=== PATIENT | female | born 2000 | race Caucasian/White ===

== ENCOUNTER 2023-06-09 03:08 | Emergency (ER) | payer OTHER ==
--- NOTE | 2023-06-09 03:39 | ED Physician Documentation ---
History of Present Illness - Stated complaint Stated Complaint: - Chief complaint Chief Complaint: UTI - History obtained from History obtained from: Patient - Additonal information Additional information: The patient comes to the emergency department chief complaint of dysuria and urinary frequency for about the last 24 hours. She is also had some blood in her urine. She had a UTI before and states this feels the same. She denies any fevers or chills or nausea and vomiting. She denies abdominal pain. No other complaints at this time. PD PAST MEDICAL HISTORY - Past Medical History Past Medical History: No - Past Surgical History Past Surgical History: No - Present Medications Home Medications: Ambulatory Orders Medication Instructions Recorded Confirmed Non Formulary 1 tab PO DAILY 06/09/23 06/09/23 Phenazopyridine HCl [Pyridium] 200 mg PO TID PRN #6 tablet 06/09/23 Sulfamethox/Trimeth 800/160 1 each PO BID #14 tablet 06/09/23 [Bactrim Ds 800/160] - Allergies Allergies/Adverse Reactions: Allergies Allergy/AdvReac Type Severity Reaction Status Date / Time amoxicillin Allergy Hives Verified 06/09/23 03:23 Penicillins Allergy Hives Verified 06/09/23 03:23 - Social History Does the pt smoke?: No Smoking Status: Never smoker Does the pt drink ETOH?: No Does the pt have substance abuse?: No Substance Use and Type: Marijuana PD ED PE NORMAL - Vitals Vital signs reviewed: Yes - General General: Alert and oriented X 3, No acute distress, Well developed/nourished - HEENT HEENT: Atraumatic, EOMI, Moist mucous membranes - Neck Neck: Supple, no meningeal sign - Cardiac Cardiac: RRR, No murmur - Respiratory Respiratory: No respiratory distress, Clear bilaterally - Abdomen Abdomen: Soft, Non tender, Non distended - Derm Derm: Normal color, Warm and dry, No rash - Extremities Extremities: No deformity - Neuro Neuro: Alert and oriented X 3 - Psych Psych: Normal mood, Normal affect Results - Vitals Vitals: Vital Signs - 24 hr 06/09/23 03:18 Temperature 36.8 C Heart Rate 130 H Respiratory 15 Rate Blood Pressure 134/69 H O2 Saturation 98 Oxygen O2 Source Room air - Labs Labs: Laboratory Tests 06/09/23 06/09/23 03:28 03:28 Serum HCG, Qual NEGATIVE Urine Color RED/BLOODY Urine Clarity CLOUDY Urine pH 8.0 H Ur Specific Drums 1.010 Urine Protein >=300 H Urine Glucose (UA) NEGATIVE Urine Ketones 15 H Urine Occult Blood LARGE H Urine Nitrite POSITIVE H Urine Bilirubin NEGATIVE Urine Urobilinogen 4 H Ur Leukocyte Esterase MODERATE H Urine RBC TNTC H Urine WBC 11-25 H Ur Squamous Epith Cells FEW Squamous Urine Bacteria Few Ur Microscopic Review INDICATED Urine Culture Comments INDICATED PD Medical Decision Making - ED course Complexity details: reviewed results, re-evaluated patient, considered differential, d/w patient, d/w family ED course: UA performed and positive for UTI. The patient was started on Bactrim and Pyridium here in the emergency department and prescriptions were sent for the same. We have discussed symptomatic management at home as well as the usual indications for return. Departure - Departure Disposition: , Self Care Clinical Impression: Urinary tract infection Qualifiers: Urinary tract infection type: acute cystitis Hematuria presence: with hematuria Qualified Code(s): N30.01 - Acute cystitis with hematuria Condition: Stable Instructions: ED UTI Cystitis Female Prescriptions: Sulfamethox/Trimeth 800/160 [Bactrim Ds 800/160] 1 each PO BID #14 tablet Phenazopyridine HCl [Pyridium] 200 mg PO TID PRN #6 tablet PRN Reason: dysuria Comments: Your urinalysis is positive for infection. You have been started on antibiotics here in the emergency department. We have also given you a dose of medication to help with the burning and irritation leading to spasm of your bladder. Prescriptions for both of these medications have also been electronically transmitted to the [facility] pharmacy in [place]. Please pick the prescriptions up first thing this morning and begin taking them as directed.
[2023-06-09 03:47] LABS: BILIRUBIN,URINE NEGATIVE (NEGATIVE); GLUCOSE, URINE (UA) NEGATIVE (NEGATIVE); KETONES,URINE (UA) 15 mg/dL (NEGATIVE); LEUKOCYTE ESTERASE, URINE MODERATE (NEGATIVE); NITRITE,URINE POSITIVE (NEGATIVE); OCCULT BLOOD,URINE LARGE (NEGATIVE); PROTEIN,URINE >=300 mg/dL (NEGATIVE); UROBILINOGEN,URINE 4 E.U./dL (NORMAL)
[2023-06-09 03:50] LABS: CLARITY,URINE CLOUDY (CLEAR)
[2023-06-09 03:51] LABS: BACTERIA,URINE Few /HPF (None Seen); RBC,URINE TNTC /HPF (0-5); SQUAMOUS EPITHELIAL CELL,UR FEW Squamous (<= Few)
[2023-06-09] MEDS: SULFAMETH/TRIMETH DS 800/160 MG TABLET PO STA (04:00)
[2023-06-09] MEDS: PHENAZOPYRIDINE 100 MG TABLET PO STA (04:00)
[2023-06-09 04:08] VITALS: BP 126/65; O2SAT 99
[2023-06-09 04:17] LABS: HCG UR QUAL NEGATIVE
== END 2023-06-09 04:08 | disposition home or self-care (01) ==
LOC: EDBD → ED 03:08
DX: N30.01 Acute cystitis with hematuria (principal)
CPT/HCPCS: 81001; 81025; 87086; 99283; A9270; 36415; 81003; 84703